=== PATIENT | female | born 1955 ===

== ENCOUNTER 2023-11-27 09:07 | Inpatient (IN) | payer OTHER ==
[~2023-11-27] VITALS: Ht 165.1 cm; Wt 61.7 kg
[2023-11-27 09:49] LABS: HEMATOCRIT 39.8 % (36.0-45.00); HEMOGLOBIN 13.7 g/dL (12.0-15.00); MEAN CELL VOLUME 83.3 fL (80.00-100.00); MEAN CORPUSCULAR HEMOGLOBIN 28.7 pg (27.00-32.0); MEAN CORPUSCULAR HGB CONC 34.5 g/dl (32.0-36.0); PLATELET COUNT 434 K/uL (150-450); RED BLOOD COUNT 4.78 M/uL (4.00-6.00); RED CELL DISTRIBUTION WIDTH 14.2 % (11.5-14.5)
[2023-11-27 10:05] LABS: PH,URINE 5.5 (5.0-8.0); URINE APPEARANCE Clear; URINE BILIRRUBIN Negative (NEGATIVE); URINE BLOOD Negative; URINE COLOR Yellow; URINE GLUCOSE Negative (NEGATIVE); URINE KETONE Negative (NEGATIVE); URINE LEUKOCYTE Trace; URINE NITRATE Negative; URINE PROTEIN Negative (NEGATIVE); URINE UROBILINOGEN 0.2 E.U./dl
[2023-11-27 10:09] LABS: URINE BACTERIA 531.7 uL (0.0-1933); URINE EPITHELIAL CELLS 3.2 uL (0.0-38.8); URINE RBC 7.4 uL (0.0-20.8); URINE WBC 3.3 uL (0.0-23.2)
[2023-11-27 11:13] LABS: PARTIAL THROMBOPLASTIN TIME 28.9 SECONDS (22.0-34.0); PROTHROMBIN TIME 10.9 SECONDS (9.0-11.5)
[2023-11-27 11:26] LABS: ALBUMIN 3.8 gm/dL (3.4-5.0); BILIRUBIN TOTAL 0.73 mg/dL (0.3-1.2); CALCIUM 9.8 mg/dL (8.5-10.1); CREATININE SERUM 0.49 mg/dL (0.55-1.02); GFR 125.59; GLOBULINA 3.6 G/DL (2.4-3.5); POTASSIUM 4.71 mEq/L (3.5-5.1); TOTAL PROTEIN 7.4 gm/dL (6.4-8.2)
[2023-11-27 12:06] LABS: URINE CAST 0.15 uL (0.0-1.40)
[2023-11-27] MEDS ORDERED: ACEBUTOLOL HCL200 MG PO (12:19)
[2023-11-27] MEDS ORDERED: METHIMAZOLE10 MG PO (12:20)
[2023-11-27 12:25] VITALS: BP 132/80
[2023-12-11] MEDS ORDERED: DEXAMETHASONE 4 MG TABLET PO ONE (08:00)
[2023-12-11] MEDS ORDERED: MORPHINE SULFATE 4 MG/ML VIAL IV ONE (09:45)
[2023-12-11] MEDS ORDERED: ENALAPRILAT DIHYDRATE 1.25 MG/ML VIAL IV PRN (09:45)
[2023-12-11] MEDS ORDERED: ONDANSETRON HCL 2 MG/ML VIAL IV PRN (09:45)
[2023-12-11 11:53] VITALS: BP 140/65; O2SAT 97
[2023-12-11] MEDS ORDERED: CYCLOBENZAPRINE HCL 5 MG TABLET PO SCH (17:00)
[2023-12-11] MEDS ORDERED: ACETAMINOPHEN 500 MG GEL..CAP PO SCH (17:00)
[2023-12-11] MEDS ORDERED: TRAMADOL HCL 50 MG TABLET PO SCH (17:00)
[2023-12-11] MEDS ORDERED: Calcium Carbonate 1 TAB TABLET PO SCH (17:00)
[2023-12-11 18:24] VITALS: BP 135/60; O2SAT 98
[2023-12-12 00:57] VITALS: BP 140/84; O2SAT 100
[2023-12-12] MEDS ORDERED: LEVOTHYROXINE SODIUM 100 MCG TABLET PO SCH (06:00)
[2023-12-12 08:00] VITALS: BP 137/65; O2SAT 96
== END 2023-12-12 12:17 | disposition home or self-care (01) | DRG 627 ==
LOC: SURH → RAD 09:07 → EDSTATUS 11:08 → CIR.AMB 12-07 11:11 → EDSTATUS 12-07 12:14 → SURH 12-07 12:15 → O/R 12-11 05:07 → SURH 12-11 11:40
PROVIDERS: ADMIT Otolaryngology; ATTEND Otolaryngology
PROC: 0GTH0ZZ Resection of Right Thyroid Gland Lobe, Open Approach (ICD-10-PCS; principal; 2023-12-11 07:00)
DX: C73 Malignant neoplasm of thyroid gland (principal); Z20.822 Contact with and (suspected) exposure to COVID-19